=== PATIENT | male | born 1990 | race Two or more races ===

== ENCOUNTER 2021-08-21 11:11 | Day surgery (SDC) | payer OTHER | END 2021-08-21 17:34 | disposition home or self-care (01) | LOC: AMB-ENDOS 11:11 → CIR.AMB 14:45 → AMB-ENDOS 17:34 | PROVIDERS: ATTEND Surgery | DX: K57.32 Diverticulitis of large intestine without perforation or abscess without bleeding (principal); K64.0 First degree hemorrhoids; Z20.822 Contact with and (suspected) exposure to COVID-19 ==

== ENCOUNTER 2021-10-16 14:12 | Outpatient (CLI) | payer OTHER | END 2021-10-16 14:47 | disposition home or self-care (01) | LOC: LAB 14:12 | PROVIDERS: ATTEND Radiology Diagnostic Radiology | DX: K65.1 Peritoneal abscess (principal) ==

== ENCOUNTER 2021-10-20 08:10 | Outpatient (CLI) | payer OTHER | END 2021-10-20 08:36 | disposition home or self-care (01) | LOC: TOM 08:10 | PROVIDERS: ATTEND Surgery | DX: K57.20 Diverticulitis of large intestine with perforation and abscess without bleeding (principal); R10.32 Left lower quadrant pain; K59.09 Other constipation; K65.1 Peritoneal abscess ==

== ENCOUNTER → 2022-09-27 | Emergency (ER) | payer OTHER ==
[~2022-09-27] VITALS: Ht 167.6 cm; Wt 81.6 kg
== END | disposition home or self-care (01) ==
LOC: ER 23:37
DX: K62.5 Hemorrhage of anus and rectum (principal); K57.32 Diverticulitis of large intestine without perforation or abscess without bleeding

== ENCOUNTER → 2022-11-29 10:20 | Outpatient (CLI) | payer OTHER | END | disposition home or self-care (01) | LOC: LAB 10:20 | PROVIDERS: ATTEND Obstetrics & Gynecology | DX: Z20.828 Contact with and (suspected) exposure to other viral communicable diseases (principal); Z20.818 Contact with and (suspected) exposure to other bacterial communicable diseases ==

== ENCOUNTER 2023-05-24 06:39 | Emergency (ER) | payer OTHER ==
[~2023-05-24] VITALS: Ht 167.6 cm; Wt 81.6 kg
[2023-05-24] MEDS ORDERED: CIPRO500 MG PO (18:28)
[2023-05-24] MEDS ORDERED: PEPCID AC20 MG PO (18:28)
[2023-05-24] MEDS ORDERED: METRONIDAZOLE500 MG PO (18:28)
[2023-05-24] MEDS ORDERED: LEVSIN/SL0.125 MG SL (18:28)
== END 2023-05-24 18:53 | disposition home or self-care (01) ==
LOC: ER 06:39
DX: K57.32 Diverticulitis of large intestine without perforation or abscess without bleeding (principal); K92.1 Melena; K52.89 Other specified noninfective gastroenteritis and colitis